=== PATIENT | male | born 1990 | race Caucasian/White ===

== ENCOUNTER 2021-03-01 08:29 | Emergency (ER) | payer MEDICAID, SELFPAY ==
[2021-03-01 08:36] VITALS: BP 131/74; PULSE 59; RESP 16; TEMP 36.4; O2SAT 99; BMI 25.4
--- NOTE | 2021-03-01 09:12 | ED.NECK ---
HPI - Neck Pain/Injury General Chief Complaint: Neck Pain/Injury Stated Complaint: fall Time Seen by Provider: 03/01/21 09:06 Source: patient and RN notes reviewed Mode of arrival: ambulatory Limitations: no limitations History of Present Illness HPI Narrative: Patient reports that he was and shower yesterday slipped and fell onto his right shoulder. [place] fine yesterday, however this morning states that he has some tightness in the scapular region. Denies any spine point tenderness. Has good range of motion to bilateral upper extremities. Able to move his neck without any difficulties. Reports right shoulder muscle spasm. Denies any mid or low back or spine pain. Related Data Previous Rx's Medication Instructions Recorded cyclobenzaprine 10 mg PO BID PRN #10 tab 03/01/21 ibuprofen 600 mg PO Q8H PRN #20 tab 03/01/21 Allergies Allergy/AdvReac Type Severity Reaction Status Date / Time No Known Allergies Allergy Unverified 07/11/20 18:27 [No Known Allergies*] Review of Systems Review of Systems: Constitutional : No Weight loss, No Fever, No Chills, No Night Sweats, No Fatigue, No Malaise ENT/Mouth : No Hearing loss, No Ear Pain, No Nasal Congestion, No Sinus Pain, No Hoarseness, No sore throat, No Rhinorrhea, No Swallowing Difficulty Eyes: No Eye Pain, No Swelling, No Redness, No Foreign Body, No Discharge, No Vision Changes Cardiovascular : No Chest Pain, No SOB, No Dyspnea on Exertion, No Orthopnea, No Edema, No Palpitations Respiratory : No Cough, No Sputum, No Wheezing, No Smoke Exposure, No Dyspnea Gastrointestinal : No Nausea, No Vomiting, No Diarrhea, No Constipation, No abdominal Pain, No Hematochezia, No Melena Genitourinary : no irregular bleeding, No Dysuria, No Urinary Frequency, No Hematuria, No Urinary Incontinence, No Urgency, No Flank Pain, No Urinary Flow Changes, No Hesitancy Musculoskeletal : No joint pain, No Myalgias, No Joint Swelling, right upper back pain Skin : No Skin Lesions, No rash Neuro : No Weakness, No Numbness, No Paresthesias, No Loss of Consciousness, No Dizziness, No Headache Psych : No Anxiety/Panic, No Depression, No SI/HI/AH/VH, No Social Issues, Heme/Lymph: No Bruising, No Bleeding,No Lymphadenopathy Endocrine : No Polyuria, No Polydipsia, No Temperature Intolerance Yes all other systems are reviewed and are negative PMFSH Past Medical History Medical History (Updated 03/01/21 @ 09:[address] [facility] No known health problems Social History Social History Advance Directives: No Advance Directives Information Provided: No Physical Exam Vital Signs: Vital Signs: Last Vital Signs Temp 97.6 F 03/01/21 08:36 Pulse 59 03/01/21 08:36 Resp 16 03/01/21 08:36 BP 131/74 03/01/21 08:36 Pulse Ox 99 03/01/21 08:36 Body Mass Index 25.4 Const: General: healthy appearing, no acute distress and well developed Nutritional Appearance: well nourished Orientation/consciousness: patient oriented x3 Neck: Neck: Yes normal visual inspection, Yes full ROM and Yes trachea midline Thyroid: Thyroid normal Resp: Auscultation: clear to auscultation bilaterally Cardio: Rate: regular rate Rhythm: regular rhythm GI: Inspection: Yes normal to inspection and No distended Palpation (GI): No hepatosplenomegaly present Auscultation: normal bowel sounds : General: Yes no CVA tenderness Back/Spine/Pelvis: Back: no CVA tenderness Cervical Spine: cervical ROM normal Thoracic/Lumbar Spine: thoracic and lumbar spine normal to inspection, paraspinal muscle tenderness (Right upper), No thoracic spinal tenderness and No lumbar spinal tenderness Skin: General skin exam: elasticity normal, turgor normal and dry skin Neuro: General: patient oriented x3 Course Course Course Narrative: 30-year-old male here today after sustaining a fall in the bathroom. States that he woke up this morning with right shoulder pain, denies any spinal tenderness. Right shoulder pain, good range of motion to bilateral upper extremities. Will send patient home with muscle relaxers and nonsteroidal anti-inflammatory medications. Patient is asking for work note for today Discharge Plan Discharge Clinical Impression: Strain of neck muscle Qualifiers: Encounter type: initial encounter Qualified Code(s): S16.1XXA - Strain of muscle, fascia and tendon at neck level, initial encounter Patient Disposition: Home, Self-Care Instructions: Musculoskeletal Pain (ED) Additional Instructions: Your seen in the emergency room after fall. Your strained year neck muscle. Please apply ice for the next 3 days for comfort. You were given ibuprofen in the emergency room. He will be sent home with cyclobenzaprine which is a muscle relaxer. Please do not drive or operate any heavy machinery while you take this medication. Please return to emergency department if you symptoms will get worse or if you will experience any additional concerning symptoms. Prescriptions: New ibuprofen 600 mg tablet 600 mg PO Q8H PRN (Reason: pain) Qty: 20 RF: 0 cyclobenzaprine 10 mg tablet 10 mg PO BID PRN (Reason: muscle spasm) Qty: 10 RF: 0 Stand Alone Forms: Work/School Release Interventions: ED Discharge Assessment Last Done: 03/01/21 09:33 Discharge Date/Time: 03/01/21 09:30
[2021-03-01] MEDS: Ibuprofen 600 MG TABLET PO (09:22)
== END 2021-03-01 09:30 | disposition home or self-care (01) ==
PROVIDERS: Emergency Provider Emergency Medicine; PCP Internal Medicine Geriatric Medicine
DX: S16.1XXA Strain of muscle, fascia and tendon at neck level, initial encounter (principal); W18.2XXA Fall in (into) shower or empty bathtub, initial encounter; Y93.E1 Activity, personal bathing and showering; Y92.012 Bathroom of single-family (private) house as the place of occurrence of the external cause; Y99.9 Unspecified external cause status
CPT/HCPCS: 99283

== ENCOUNTER 2021-03-19 12:36 | Emergency (ER) | payer MEDICAID, SELFPAY ==
--- NOTE | ~2021-03-19 | XR_ITS ---
EXAMINATION: XR KNEE, RIGHT CLINICAL INFORMATION: Fall, trauma, pain COMPARISON: None TECHNIQUE: The right knee is imaged in 4 views including are stable lateral projection. FINDINGS: The crosstable lateral view shows small suprapatellar effusion with fat fluid level suggesting occult intracapsular fracture. One of the oblique views may suggest a fine cortical avulsion adjacent to posterior medial tibial plateau measuring 5 x 3 mm. Otherwise, there is no definite fracture line and no articular surface depression. There is no joint narrowing or erosive change. The bony mineralization is normal. Hoffa's fat pad appears normal. XR/XR knee RT 4V IMPRESSION: Small fat-fluid level suprapatellar bursa suggesting occult intracapsular fracture. There may be a cortical avulsion on one of the oblique views near the posterior medial tibial plateau measuring 5 x [address] knee for further assessment.
--- NOTE | ~2021-03-19 | CT_ITS ---
EXAMINATION: CT KNEE WITHOUT CONTRAST, RIGHT CLINICAL INFORMATION: Evaluate plateau fracture. COMPARISON: None TECHNIQUE: Axial 2 mm thin and reformatted 1 mm thin sagittal and coronal images of right knee were obtained. This CT examination was performed using dose optimization techniques as appropriate, variously including the following: *Automated exposure control *Adjustment of mA and/or kV according to patient size (this includes techniques or standardized protocols for targeted exams where dose is matched to indication/reason for exam; i.e. extremities or head) *Use of iterative reconstruction technique DLP: 187 mGy-cm FINDINGS: There are small avulsion fractures along the posterior margins of lateral and medial plateau with associated mild soft tissue swelling. There is mild suprapatellar joint effusion seen as well. No additional fracture, dislocation or loose body seen. No additional bony abnormality or fracture seen. CT/CT knee RT wo con IMPRESSION: Small avulsion fractures posterior margin of the medial and lateral tibial plateau with mild soft tissue swelling and mild suprapatellar joint effusion.
[2021-03-19 13:10] VITALS: BP 123/78; PULSE 72; RESP 18; TEMP 36.5; O2SAT 100; BMI 25.7
[2021-03-19] MEDS: Diphth,Pertus(ACell),Tet Adult 0.5 ML SYRINGE IM (13:21)
--- NOTE | 2021-03-19 14:07 | ED.LOWEXIN ---
HPI - Extremity Injury (Lower) General Chief Complaint: Extremity Injury, Lower <BELKYS Fields Last Filed: 03/28/21 12:15> Stated Complaint: knee injury <BELYKS Fields Last Filed: 03/28/21 12:15> Time Seen by Provider: 03/19/21 13:08 <BELKYS Fields Last Filed: 03/28/21 12:15> History of Present Illness HPI Narrative: Patient complains of right knee pain after a fall off a scooter, no other injury no headache no head injury no neck injury no neck pain no back pain no numbness weakness or tingling <BELKYS Fields Last Filed: 03/28/21 12:15> Related Data Home Medications: Previous Rx's Medication Instructions Recorded cyclobenzaprine 10 mg PO BID PRN #10 tab 03/01/21 ibuprofen 600 mg PO Q8H PRN #20 tab 03/01/21 acetaminophen 1,000 mg PO Q6H PRN #30 tab 03/19/21 cephalexin 500 mg PO TID 3 Days #9 tab 03/19/21 ibuprofen 600 mg PO Q6H PRN #30 tab 03/19/21 oxycodone 5 mg PO Q6H PRN #20 tab 03/19/21 <BELKYS Fields Last Filed: 03/28/21 12:15> Allergies/Adverse Reactions: Allergies Allergy/AdvReac Type Severity Reaction Status Date / Time No Known Allergies Allergy Verified 04/09/21 14:51 [No Known Allergies*] <BELKYS Fields Last Filed: 03/28/21 12:15> Review of Systems Review of Systems: Positive for right knee pain Negatives are no fever no chills no dizziness no weakness no headache no fainting no feeling faint and no dizziness no neck pain no back pain no chest pain no abdominal pain no numbness weakness or tingling <BELKYS Fields Last Filed: 03/28/21 12:15> Yes all other systems are reviewed and are negative <BELKYS Fields Last Filed: 03/28/21 12:15> PMFSH Past Medical History Source: nursing notes reviewed <BELKYS Fields Last Filed: 03/28/21 12:15> Medical History: Medical History No known health problems <BELKYS Fields - Last Filed: 03/28/21 12:15> Social History Social History: Social History (Updated 04/09/21 @ 14:55 by JOSEFA Mcallister) Alcohol intake: never Patient Tobacco Use Status: Never used Tobacco Current occupational status: unemployed Current occupation: rt handed <BELKYS Fields - Last Filed: 03/28/21 12:15> Physical Exam Vital Signs: Vital Signs: Last Vital Signs Temp 97.9 F 03/19/21 15:21 Pulse 66 03/19/21 15:21 Resp 16 03/19/21 15:21 BP 131/85 03/19/21 15:21 Pulse Ox 100 03/19/21 15:21 Body Mass Index 25.7 <BELKYS Fields - Last Filed: 03/28/21 12:15> Vital Signs: Last Vital Signs Temp 97.9 F 03/19/21 15:21 Pulse 66 03/19/21 15:21 Resp 16 03/19/21 15:21 BP 131/85 03/19/21 15:21 Pulse Ox 100 03/19/21 15:21 Body Mass Index 25.7 <Zach Holden MD - Last Filed: 04/29/21 18:23> General appearance is no acute distress Head is normocephalic atraumatic Neck is supple nontender Chest clear to auscultation bilateral with no chest wall tenderness Artery murmur Abdomen is soft nontender Extremities the right knee has tenderness mild swelling and some superficial abrasions, no obvious effusion, patient has difficulty with straight leg raise but is able to do it, he cannot bend the knee and he cannot bear weight on it, it is neurovascular intact distal Other extremities normal Neuro no gross motor or sensory deficit <BELKYS Fields - Last Filed: 03/28/21 12:15> Course Course Course Narrative: Patient's pain was controlled with analgesics, he was able to use crutches X-ray and CT scan showed avulsion fractures of lateral and medial plateau This was discussed by text with orthopedic physician assistant men's lacrosse coach pete and plan is knee immobilizer crutches and follow in the office, patient will call to make the appointment <BELKYS Fields - Last Filed: 03/28/21 12:15> I have reviewed the chart <Zach Holden MD - Last Filed: 04/29/21 18:23> Discharge Plan Discharge Clinical Impression: Closed fracture of tibial plateau <BELKYS Fields Last Filed: 03/28/21 12:15> Patient Disposition: Home, Self-Care <BELKYS Fields Last Filed: 03/28/21 12:15> Additional Instructions: You should be seen by orthopedist either late this week or early next week for broken bone in the knee This was discussed with physician assistant men's lacrosse coach Ashely Freeman, so if medical records secretary says there is no appointment available make sure that you mention this was discussed with the physician assistant men's lacrosse coach and you should be seen end of this week or early next week Return to ER any time any concerns You got a tetanus shot We are giving 3 days of Keflex antibiotic to prevent infection <BELKYS Fields Last Filed: 03/28/21 12:15> Prescriptions: New oxycodone 5 mg tablet 5 mg PO Q6H PRN (Reason: pain) Qty: 20 RF: 0 acetaminophen 500 mg tablet 1,000 mg PO Q6H PRN (Reason: pain) Qty: 30 RF: 0 ibuprofen 600 mg tablet 600 mg PO Q6H PRN (Reason: pain) Qty: 30 RF: 0 cephalexin 500 mg tablet 500 mg PO TID 3 Days Qty: 9 RF: 0 No Action ibuprofen 600 mg tablet 600 mg PO Q8H PRN (Reason: pain) Qty: 20 RF: 0 cyclobenzaprine 10 mg tablet 10 mg PO BID PRN (Reason: muscle spasm) Qty: 10 RF: 0 <BELKYS Fields - Last Filed: 03/28/21 12:15> Referrals: Tatiana Delcid MD [Physician] - 2 days (Tibial plateau avulsion fractures, discussed with physician assistant freeman) <BELKYS Fields Last Filed: 03/28/21 12:15> Stand Alone Forms: Work/School Release <BELKYS Fields Last Filed: 03/28/21 12:15> Interventions: ED Discharge Assessment Last Done: 03/19/21 16:13 <BELKYS Fields Last Filed: 03/28/21 12:15> Discharge Date/Time: 03/19/21 16:16 <BELKYS Fields - Last Filed: 03/28/21 12:15>
[2021-03-19] MEDS: Ketorolac Tromethamine 30 MG/ML VIAL IM (14:11)
[2021-03-19] MEDS: oxyCODONE HCl Immed Release 5 MG TABLET 10 MG PO (14:12)
--- NOTE | 2021-03-19 14:15 | PC.NURSE ---
PT STATES RIGHT KNEE PAIN IS INCREASING AND FEELS DIZZY FROM THE PAIN. PT MOVED TO A STRETCHER FROM A RECLINER CHAIR AND MEDICATED FOR PAIN. AWAITING CT.
[2021-03-19 14:51] VITALS: RESP 17
[2021-03-19 15:21] VITALS: BP 131/85; PULSE 66; RESP 16; TEMP 36.6; O2SAT 100
[2021-03-19] MEDS: cephALEXin 500 MG CAPSULE PO (16:09)
== END 2021-03-19 16:16 | disposition home or self-care (01) ==
PROVIDERS: Emergency Provider Emergency Medicine; PCP Internal Medicine Geriatric Medicine
DX: S82.141A Displaced bicondylar fracture of right tibia, initial encounter for closed fracture (principal); M25.561 Pain in right knee; W19.XXXA Unspecified fall, initial encounter; Y93.9 Activity, unspecified; Y92.9 Unspecified place or not applicable; Y99.8 Other external cause status
CPT/HCPCS: 73564; 73700; 90471; 90715; 96372; 99284; J1885

== ENCOUNTER → 2021-03-28 08:05 | Outpatient (BNVA) | payer MEDICAID, SELFPAY | PROVIDERS: PCP Internal Medicine Geriatric Medicine; Visit Provider Physician Assistant | DX: S82.141A Displaced bicondylar fracture of right tibia, initial encounter for closed fracture (principal) | CPT/HCPCS: 99202 ==

== ENCOUNTER 2021-04-03 19:31 | Outpatient (REF) | payer MEDICAID, SELFPAY ==
--- NOTE | ~2021-04-03 | MR_ITS ---
EXAMINATION: MR KNEE WITHOUT CONTRAST, RIGHT CLINICAL INFORMATION: Displaced bicondylar fracture of right tibia. Patient reports right posterior knee pain, swelling with symptoms for 2 weeks after injury. COMPARISON: XR and CT right knee 03/19/2021. TECHNIQUE: MRI of the knee without contrast was performed using routine sequences on a high-field scanner. FINDINGS: MENISCI: Medial Meniscus: Intact Lateral Meniscus: There is a bucket-handle tear of the lateral meniscus. The entire posterior horn and much of the body are displaced centrally and anteriorly. LIGAMENTS: Cruciate: There is a complete tear of the proximal to midportion of the anterior cruciate ligament. The posterior cruciate ligament is intact. Collateral: There is some irregularity and mild signal abnormality of the superficial layer of the medial collateral ligament diffusely, consistent with a mild sprain. There are similar findings involving the deep layer, even more so in the proximal meniscofemoral ligament region. Overall [id number] grade sprain. There is moderate grade partial tearing of the proximal fibular collateral ligament with more low-grade partial tearing of the mid to distal ligament. There is some loculated fluid between the fibular collateral ligament and biceps femoris tendon extending deep and posterior to the tendon. There is streaky edema in the popliteus muscle consistent with a mild strain. There is mild tendinosis of the distal popliteus tendon. There are mild strains of the proximal lateral head gastrocnemius and soleus muscles. EXTENSOR MECHANISM: Intact. ARTICULAR CARTILAGE/BONE: Patellofemoral Compartment: There is focal cartilage surface irregularity and thinning at the junction of the apex and lateral facet of the patella. There is mild cartilage surface irregularity in the superior aspect of the central femoral trochlea. Medial Compartment: There is a comminuted intra-articular fracture of the posterior margin of the medial tibial plateau. There is some displacement of small fracture fragments, better characterized on the prior CT scan. There is a small focal area of cortical irregularity, including some full-thickness fissuring. There is diffuse bone marrow edema, most prominent posteriorly but also present anteriorly and extending to the metaphysis. There is mild bone marrow edema in the medial aspect of the medial femoral condyle. Lateral Compartment: There is a comminuted fracture of the posterior margin of the lateral tibial plateau with mild posterior displacement of cortical fragments, somewhat better visualized on the prior CT scan. There is focal overlying full-thickness cartilage fissuring. There is diffuse underlying bone marrow edema, most prominent posteriorly but also involving the anterior aspect of the lateral tibial plateau and extending to the metaphysis. There is focal mild bone marrow edema in the sulcus terminalis region of the lateral femoral condyle. JOINT FLUID AND BURSAE: Large joint effusion. MR/MR knee RT wo con IMPRESSION: 1. Complex bucket-handle tear of the lateral meniscus. 2. Complete tear of the anterior cruciate ligament. 3. Tbqg-at-trokzoor grade sprain of the medial collateral ligament. 4. Mild popliteus tendinosis and strain. Mild strains of the proximal lateral head gastrocnemius and soleus muscles. 5. Focal comminuted intra-articular fractures at the posterior margins of the medial and lateral tibial plateaus with overlying cartilage fissures and underlying diffuse bone marrow edema. Mild bone contusion in the sulcus terminalis region of the lateral femoral condyle. Minor bone contusion in the medial aspect of the medial femoral condyle. 6. Mild central patellofemoral arthrosis. 7. Large joint effusion.
== END 2021-04-03 19:32 | disposition home or self-care (01) ==
LOC: HO.MRI 19:31
PROVIDERS: Visit Provider Physician Assistant
DX: S82.141A Displaced bicondylar fracture of right tibia, initial encounter for closed fracture (principal)
CPT/HCPCS: 73721

== ENCOUNTER → 2021-04-09 14:41 | Outpatient (BNVA) | payer MEDICAID, SELFPAY | PROVIDERS: PCP Internal Medicine Geriatric Medicine; Visit Provider Physician Assistant | DX: S83.511D Sprain of anterior cruciate ligament of right knee, subsequent encounter (principal) | CPT/HCPCS: 99212 ==

== ENCOUNTER → 2021-05-20 11:36 | Outpatient (BNVA) | payer MEDICAID, SELFPAY | PROVIDERS: Visit Provider Physician Assistant | DX: Z01.818 Encounter for other preprocedural examination (principal); S83.511A Sprain of anterior cruciate ligament of right knee, initial encounter | CPT/HCPCS: 99212 ==

== ENCOUNTER → 2021-05-27 14:14 | Outpatient (BNVA) | payer MEDICAID, SELFPAY | PROVIDERS: PCP Internal Medicine Geriatric Medicine; Visit Provider Physician Assistant | DX: S83.511D Sprain of anterior cruciate ligament of right knee, subsequent encounter (principal) | CPT/HCPCS: 99212 ==

== ENCOUNTER 2021-05-29 06:02 | Day surgery (SDC) | payer MEDICAID, SELFPAY ==
[2021-05-15 11:46] VITALS: BMI 25.4
--- NOTE | 2021-05-28 08:13 | HO.ANESPROP2 ---
Documented by User: Gillian Wayne 05/28/21 08:14 HPI - Anesthesia Eval Consult details Narrative: 31yo M for Right ACL Allograft econstruction PMFSH Active Problems Active Problems: All Active Problems (Updated 05/15/21 @ 11:44 by Iqra Harrison) Tibial plateau fracture, right (Acute) Right ACL tear (Acute) Past Medical History Medical History Low back pain Surgical History Surgical History No history of previous surgery Social History Social History Alcohol intake: never Patient Tobacco Use Status: Never used Tobacco Use of substances other than those prescribed or required for medical reasons: No Are you DNR?: No Advance Directives: No Advance Directives Information Provided: No Advance Directives on File: No Current occupational status: unemployed Current occupation: rt handed Meds Allergies Allergy/AdvReac Type Severity Reaction Status Date / Time No Known Allergies Allergy Verified 05/29/21 06:09 [No Known Allergies*] Home Medications Medication Instructions Recorded Confirmed Last Taken Type acetaminophen 500 mg tablet 650 mg PO Q6H PRN 05/15/21 05/15/21 Unknown History ibuprofen 600 mg tablet 600 mg PO BID PRN 05/15/21 05/15/21 Unknown History Exam Exam Date and Time: May 28, 2021 0813 Height,Weight and Vital Signs: Height 5 ft 4 in Weight 67.132 kg Assessment and Plan Assessment Anesthesia Assessment: Chart Reviewed Documented by User: Chang Oneil MD 05/29/21 07:44 PMFSH Past Medical History Medical History Low back pain Family History Family history of problems with anesthesia: No Surgical History Surgical History No history of previous surgery History of Problems with Anesthesia: No Social History Social History Alcohol intake: never Patient Tobacco Use Status: Never used Tobacco Use of substances other than those prescribed or required for medical reasons: No Are you DNR?: No Advance Directives: No Advance Directives Information Provided: No Advance Directives on File: No Current occupational status: unemployed Current occupation: rt handed Meds Allergies Allergy/AdvReac Type Severity Reaction Status Date / Time No Known Allergies Allergy Verified 05/29/21 06:09 [No Known Allergies*] Home Medications Medication Instructions Recorded Confirmed Last Taken Type acetaminophen 500 mg tablet 650 mg PO Q6H PRN 05/15/21 05/15/21 Unknown History ibuprofen 600 mg tablet 600 mg PO BID PRN 05/15/21 05/15/21 Unknown History Exam Airway Mallampati Class: II TM Dist: >3cm Neck ROM: Full Loose/Missing/Broken Teeth: No Heart: RRR Assessment and Plan Assessment Anesthesia Assessment: Anesthesia Plan Discussed and Chart Reviewed Final Anesthetic Review Family History of Problems with Anesthesia: No History of Problems with Anesthesia: No NPO: Yes ASA Class: I Final Preanesthetic Review: No Changes in Pt Med Stat, Meds/Allgs Chart Reviewed, Consent Obtained/Reviewed and Anes Risks/Benef Reviewed Patient Risk: Low Procedure Risk: Low Anesthetic Plan Anesthetic Plan: GA Disposition: Standard PACU
[2021-05-29] VITALS (13 sets, daily range): BP systolic 121–145; BP diastolic 65–93; PULSE 45–80; RESP 6–16; TEMP 36.1–36.6; O2SAT 94–99
[2021-05-29] MEDS: Lactated Ringers 1,000 ML 100 ML IVCONT (06:48)
--- NOTE | 2021-05-29 07:29 | MHC.SHP ---
Pre-Procedural Eval Section A Date of Service: 05/29/21 The patient is an INPATIENT: No Changes since office visit: No Cold of Flu in the past 2 weeks, No New Medical Problems, No Changes in Medication and No Patient answered all questions The History & Physical has been completed within 30 days and I have reviewed it.: Yes Section B Chief Complaint: fx right tibia Allergies: Allergies Allergy/AdvReac Type Severity Reaction Status Date / Time No Known Allergies Allergy Verified 05/29/21 06:09 [No Known Allergies*] Plan I have reviewed the history and physical and performed a pertinent physical examination on my patient. No changes have occurred unless specified.
[2021-05-29] MEDS: HYDROmorphone HCl 0.5 MG/0.5 ML SYRINGE 0.25 MG IVPUSH ×3 (09:24→09:54)
[2021-05-29] MEDS: Ketorolac Tromethamine 15 MG/ML VIAL IVPUSH (09:28)
[2021-05-29] MEDS: Acetaminophen 325 MG TABLET 975 MG PO (09:35)
--- NOTE | 2021-05-29 10:08 | W.PM.OPN ---
Operative Note Operative Note Date of Service: 05/29/21 Narrative: OPERATIVE NOTE-ACL RECONSTRUCTION SURGEON: Dr Tatiana Walden) Instrum AUTOMATIC PUNCH PRESS OPERATOR: , Aliyah Henning PAC PREOP DIAGNOSIS: ACL deficient right knee POSTOP DIAGNOSIS: Same with lateral meniscus tear OPERATIVE PROCEDURE: ACL reconstruction right knee with BTB allograft. Partial lateral meniscectomy right knee CLINICAL NOTE: This young man suffered an injury where he suffered an ACL injury. After explaining the risks, benefits, and alternatives of the surgery and answering all his questions it was mutually agreed upon to carry out the following procedure MOTION: Full range of motion STABILITY: Positive Chance's and pivot shift. Collateral ligaments intact OPERATIVE DETAILS PREPARATION: GA, STANDARD TECHNIQUE, tourniquet to 300 mm of mercury for 49 minutes SURGICAL TIME-OUT: Patient is identified. Procedure confirmed. Site confirmed. Medical and allergy history is reviewed. Preoperative antibiotics were given. Standard DVT prophylaxis in place. All other items discussed and agreed upon. INCISIONS: Superolateral, inferolateral, inferomedial stab incisions. Proximal medial metaphyseal incision for tibial tunnel and graft insertion SYNOVIUM: Clear SYNOVIAL fluid: Clear MEDIAL COMPARTMENT: The medial meniscus, tibial and femoral articular surfaces, were all stable and intact LATERAL COMPARTMENT: There was a bucket-handle tear that was detached from the posterior root that had translated anteriorly. This was resected final fibers at the posterior root and then resected to the anterior portion. There was stable but minimal meniscus remaining posteriorly. The tibial and femoral articular surfaces and the popliteus tendon were all stable and intact. ANTERIOR COMPARTMENT: Medial and lateral gutters clear. Suprapatellar pouch clear. The patella had some grade 3 injury which was debrided. The femoral sulcus was intact INTERCONDYLAR NOTCH: . The ACL was obviously torn and scarred back to the PCL. Using a combination of the arthro Wand and the Ultra cut resector, the ACL was removed. The periosteum was cleared as well as the soft tissues from the intercondylar notch region. The PCL was identified. Using the Arthrex guide the tibial tunnel was established through a stab incision on the proximal medial metaphyseal region in standard technique by drilling the wire and subsequently over reaming it with a 10 mm headed Reamer. A rasp was then used to smooth the canal. Simultaneous to the tibial tunnel being prepared, the allograft was prepared as well. It was a bone patellar bone allograft that measured 107 mm. One bone block was 30 mm. The opposite 1 was 28 mm. Maxon sutures were placed through drill holes on the longer end and Tycron sutures through drill holes on the tibial side. The graft was then protected return her attention back to the knee. Using the [id number] guide standard technique with the position being approximately 10:00 o'clock the Beath needle was drilled out of the anterolateral cortex. Following this the 10 mm headed Reamer was used over the guidewire. Footprint was made. It was checked and there was good posterior wall. It was then drilled out to a 35 mm depth. The notch was used in standard fashion. The bony fragments were washed from the wound. The graft was then brought up to the table. The Maxon sutures were placed through the eye of the Beath needle. The graft was then translated through the tibial tunnel across the PCL into the femoral canal without incident. Using the inferomedial portal the nidol guidewire was inserted into the notch and with the knee flexed up an 8 x 25 mm BioScrew was inserted with excellent purchase. With the graft at tension the knee was repetitively flexed and extended. The graft was then secured with the leg at 15 degrees of flexion and the graft to tension with a another 8 x 25 mm BioScrew inserted into the tibial tunnel. Following this final images were taken. The knee demonstrated negative Chance's and pivot shift and therefore proceeded closure. Incisions approximated using interrupted 3-0 Polysorb. Dermabond Steri-Strips and sterile dressing were then applied. The knee was placed in a brace locked straight. The patient's anesthesia was reversed. They were transferred to the recovery room in good condition. Intraoperatively there was minimal blood loss. There was no complications
== END 2021-05-29 11:45 | disposition home or self-care (01) ==
PROVIDERS: PCP Internal Medicine Geriatric Medicine; Visit Provider Orthopaedic Surgery
PROC: (CPT 27428; principal; 2021-05-29 07:30)
DX: S83.511A Sprain of anterior cruciate ligament of right knee, initial encounter (principal); S83.251A Bucket-handle tear of lateral meniscus, current injury, right knee, initial encounter; S83.411A Sprain of medial collateral ligament of right knee, initial encounter; X58.XXXA Exposure to other specified factors, initial encounter; Y93.9 Activity, unspecified; Y92.9 Unspecified place or not applicable; Y99.8 Other external cause status
CPT/HCPCS: 29888; 29881; C1713; C1763; C1769; J0171; J0690; J1100; J1170; J1885; J2250; J2405; J3010

== ENCOUNTER → 2021-06-05 10:41 | Outpatient (BNVA) | payer MEDICAID, SELFPAY | PROVIDERS: PCP Internal Medicine Geriatric Medicine; Visit Provider Physician Assistant | DX: S83.511D Sprain of anterior cruciate ligament of right knee, subsequent encounter (principal) | CPT/HCPCS: 99212 ==

== ENCOUNTER → 2021-06-10 10:54 | Outpatient (BNVA) | payer MEDICAID, SELFPAY | PROVIDERS: PCP Internal Medicine Geriatric Medicine; Visit Provider Physician Assistant | DX: Z47.89 Encounter for other orthopedic aftercare (principal) | CPT/HCPCS: 99212 ==

== ENCOUNTER → 2021-07-08 10:46 | Outpatient (BNVA) | payer MEDICAID, SELFPAY | PROVIDERS: PCP Internal Medicine Geriatric Medicine; Visit Provider Physician Assistant | DX: Z98.890 Other specified postprocedural states (principal) | CPT/HCPCS: 99212 ==

== ENCOUNTER 2021-08-01 15:16 | Outpatient (REF) | payer MEDICAID, SELFPAY ==
--- NOTE | ~2021-08-01 | XR_ITS ---
EXAMINATION: XR LUMBOSACRAL SPINE CLINICAL INFORMATION: Pain and clicking COMPARISON: Previous x-ray May 2019 TECHNIQUE: Three views of the lumbosacral spine. FINDINGS: The vertebral bodies and posterior elements are normal. The disc spaces are preserved and the vertebral alignment is normal. The paraspinal soft tissues are normal. XR/XR lumbar spine 2-3V IMPRESSION: Unremarkable examination.
== END 2021-08-01 15:17 | disposition home or self-care (01) ==
LOC: HO.XRAY 15:16
PROVIDERS: Absent Provider Internal Medicine Geriatric Medicine; PCP Internal Medicine Geriatric Medicine; Visit Provider Nurse Practitioner Primary Care
DX: M53.3 Sacrococcygeal disorders, not elsewhere classified (principal)
CPT/HCPCS: 72100

== ENCOUNTER → 2021-08-11 08:42 | Outpatient (BNVA) | payer MEDICAID, SELFPAY | PROVIDERS: Visit Provider Physician Assistant | DX: Z98.890 Other specified postprocedural states (principal) | CPT/HCPCS: 99212 ==

== ENCOUNTER 2021-09-11 10:00 | Outpatient (RCR) | payer MEDICAID, SELFPAY ==
--- NOTE | 2021-07-03 15:42 | MHC.PT.EP ---
[facility] [place] Office [place] Office [place] Office [address] Celestine Vaughan [address] [phone] F: [phone] F: [phone] F: [phone] F: [phone] Physical Therapy Plan of Care Date of Evaluation: Date of Surgery: 05/29/21 Diagnosis: S/P RIGHT ACL W BTB ALLOGRAFT AND PARTIAL LATERAL MENISCECTOMY 05/29/21 next ortho f/u 07/09/21 Assessment: 31 YO MALE REF TO PT S/P Rt ACL REPAIR ALLOGRAFT W BTB AND PARTIAL LATERAL MENISCECTOMY 05/29/21- HE IS CURRENTLY 5 WKS P/O AND IS COMPLIANT W BRACE USE, HE D/C CRUTCHES THIS DATE. 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 OBJECTIVE FINDINGS MIRROR THAT OF POST-OP: DECR ROM Rt KNEE, DECR Rt PATELLAR MOB, DECR STRENGTH Rt LE, MILD EDEMA, AND SOME RESIDUAL PAIN IN Rt KNEE. FUNCTIONAL LIMITATIONS INCLUDE ADL RESTRICTIONS, IN Rt KNEE BRACE, DIFFIC W STAIR MGMT, AND GEN DECR TO INCR WALKING. Pt IS MOTIVATED FOR PT AND MEETING HIS POST OP GOALS OF RTW/ REG ADLs. Frequency and Duration: The patient will be seen 2x WK x 6 WKS Short Term Goals: DECR PAIN AND EDEMA Rt KNEE IN 2 WKS IMPROVE/ WFL Rt KNEE ROM IN 3 WKS WFL Rt PATELLAR MOB IN 3 WKS Skilled Nursing Goals: Pt DEMON INDEP GAIT LEVEL AND UNEVEN SURFACES AND RESUME ADLs PER PROTOCOL IN 6 -8 WKS RESTORE PROPRIOCEPTION/ NEUROMUSCULAR CONTROL W HIGHER LEVEL ADLs IN 6 WKS Pt INDEP W HEP AND STRENGTH PROGR IN 8 WKS Treatment Plan: Modalities to reduce pain, spasms and effusion. Manual therapy to restore motion and function. Therapeutic exercise to improve strength and flexibility. Neuromuscular re-education for posture and balance. Therapeutic activities to return to functional activities of daily living. Electronically signed by: AMERICA CASTRO,PT Please sign and return to therapist. Thank you for your referral.
--- NOTE | 2021-10-20 14:04 | MHC.PT.DC ---
[facility] [place] Office [place] Office [place] Office [address] Celestine Vaughan [address] [phone] F: [phone] F: [phone] F: [phone] F: [phone] Physical Therapy Discharge Report Diagnosis: S/P RIGHT ACL W BTB ALLOGRAFT AND PARTIAL LATERAL MENISCECTOMY 05/29/21 next ortho f/u 07/09/21 Date of Surgery: 05/29/21 Date of Evaluation: 07/03/21 Date of Discharge: 10/20/21 Treatments to Date: 16 Cancellations to Date: 3 No Shows to Date: 5 Discharge Status: Achieved Goals Improved Function Independent with HEP Patient Elected to Stop Discharge Summary: Pt HAS PROGRESSED IN PT S/P Rt ACL REPAIR 05/29/21- Pt HAS WFL AROM AND IMPROVED STRENGTH IN TRUNK AND Rt LE- Pt HAD DECREASED ATTENDANCE FOR SCHED PT APPTS, DESPITE OUR PHONE CALLS. Pt [facility]ERN[facility] W[employer]- HE HAD VERY POOR ATTENDANCE RECENTLY AND DID NOT INITIATE THE JUMP PROGRAM. Electronically signed by: Lillie Lindsay,PT Please sign and return to therapist. Thank you for your referral.
== END 2021-10-20 14:05 | disposition home or self-care (01) ==
LOC: HO.PT 10:00
PROVIDERS: PCP Internal Medicine Geriatric Medicine; Visit Provider Physician Assistant
DX: S83.511D Sprain of anterior cruciate ligament of right knee, subsequent encounter (principal); Z98.890 Other specified postprocedural states
CPT/HCPCS: 97110; 97112; 97162; 97530

== ENCOUNTER → 2021-09-26 12:59 | Outpatient (BNVA) | payer MEDICAID, SELFPAY | PROVIDERS: Visit Provider Physician Assistant | DX: Z98.890 Other specified postprocedural states (principal) | CPT/HCPCS: 99212 ==

== ENCOUNTER 2021-10-06 16:41 | Outpatient (REF) | payer MEDICAID, SELFPAY ==
--- NOTE | ~2021-10-06 | XR_ITS ---
EXAMINATION: XR KNEE, RIGHT CLINICAL INFORMATION: Sprain of medial collateral ligament of right knee, initial encounter. COMPARISON: MR right knee 04/03/2021. CT right knee 03/19/2021. TECHNIQUE: AP weightbearing, tunnel, lateral weightbearing, and sunrise views of the right knee are obtained. FINDINGS: There is no acute fracture or malalignment. There is a small joint effusion. There are postoperative changes from anterior cruciate ligament reconstruction. There is irregularity at the posterior margin of the lateral tibial plateau which may be the residua of the previously noted fractures of the posterior margins of the medial and lateral tibial plateaus. XR/XR knee RT 4V IMPRESSION: No acute fracture. Small joint effusion. Postoperative and posttraumatic changes as described above.
== END 2021-10-06 16:42 | disposition home or self-care (01) ==
LOC: HO.XRAY 16:41
PROVIDERS: Visit Provider Internal Medicine
DX: S83.411D Sprain of medial collateral ligament of right knee, subsequent encounter (principal); V89.2XXD Person injured in unspecified motor-vehicle accident, traffic, subsequent encounter
CPT/HCPCS: 73564

== ENCOUNTER 2022-04-17 16:15 | Outpatient (REF) | payer MEDICAID, SELFPAY ==
--- NOTE | ~2022-04-17 | XR_ITS ---
EXAMINATION: XR LUMBOSACRAL SPINE CLINICAL INFORMATION: Low back pain COMPARISON: 08/01/2021 TECHNIQUE: AP and lateral views of the lumbar spine with an additional coned down lateral spot view of the lumbosacral junction. FINDINGS: 5 non-rib bearing lumbar type vertebral bodies are seen. Vertebral body and disc heights are maintained. On the lateral view there is lucency through the L5 lamina suggesting pars defects. There is a suggestion of mild sclerosis adjacent the sacroiliac joints as well. 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 No anterolisthesis however. New/increased sclerosis adjacent the sacroiliac joints could be seen with sacroiliitis.
== END 2022-04-17 16:16 | disposition home or self-care (01) ==
LOC: HO.XRAY 16:15
PROVIDERS: PCP Internal Medicine Geriatric Medicine; Visit Provider Emergency Medicine
DX: M54.50 Low back pain, unspecified (principal)
CPT/HCPCS: 72100

== ENCOUNTER 2022-10-31 14:49 | Emergency (ER) | payer MEDICAID, SELFPAY ==
--- NOTE | ~2022-10-31 | XR_ITS ---
EXAMINATION: XR HAND, RIGHT CLINICAL INFORMATION: Crush injury COMPARISON: None TECHNIQUE: PA, lateral, and oblique views of the right hand. FINDINGS: The bones and soft tissues are normal. No fracture. Alignment is anatomic. Joint spaces are maintained. No erosions or soft tissue calcifications. XR/XR hand RT 2V IMPRESSION: Unremarkable right hand.
[2022-10-31 14:52] VITALS: BP 124/54; PULSE 89; RESP 18; TEMP 36.7; O2SAT 99; BMI 26.6
--- NOTE | 2022-10-31 14:52 | ED.GENADULT ---
HPI - General Adult General Chief complaint: Extremity Injury, Upper <BELKYS Gomez - Last Filed: 10/31/22 14:54> Stated complaint: r hand laceration <BELKYS Gomez - Last Filed: 10/31/22 14:54> Time Seen by Provider: 10/31/22 15:22 <BELKYS Gomez - Last Filed: 10/31/22 14:54> Source: patient <Yessica Becerra NP - Last Filed: 10/31/22 18:34> Mode of arrival: ambulatory <Yessica Becerra NP - Last Filed: 10/31/22 18:34> Limitations: no limitations <Yessica Becerra NP - Last Filed: 10/31/22 18:34> History of Present Illness HPI narrative: 32-year-old male with no significant past medical history reports the emergency room after sustaining a partial degloving to the right index finger while working on an automobile. Patient states he is up-to-date on tetanus. He denies any numbness, tingling, weakness in the index finger or right hand. <Yessica Becerra NP - Last Filed: 10/31/22 18:34> Related Data Home medications: Home Medications Medication Instructions Recorded Confirmed acetaminophen 500 mg tablet 650 mg PO Q6H PRN pain 05/15/21 05/15/21 Previous Rx's Medication Instructions Recorded cephalexin 500 mg capsule 500 mg PO BID 10 days #20 caps 05/20/21 silver sulfadiazine 1 % topical 1 appl topical BID PRN wound 05/20/21 cream (Silvadene) healing #20 grams oxycodone 10 mg tablet 5 mg PO Q12H PRN pain #14 tabs 07/28/21 ibuprofen 600 mg tablet 600 mg PO BID PRN pain 30 days #60 08/11/21 tabs amoxicillin 875 mg-potassium 1 tab PO BID 5 days #10 tabs 10/31/22 clavulanate 125 mg tablet oxycodone 5 mg capsule 5 mg PO Q6H PRN pain #10 caps 10/31/22 <BELKYS Gomez - Last Filed: 10/31/22 14:54> Allergies/adverse reactions: Allergies Allergy/AdvReac Type Severity Reaction Status Date / Time No Known Allergies Allergy Verified 08/11/21 08:52 [No Known Allergies*] <BELKYS Gomez - Last Filed: 10/31/22 14:54> [facility] Past Medical History Medical History: Medical History Low back pain <BELKYS Gomez - Last Filed: 10/31/22 14:54> Surgical History: Surgical History No history of previous surgery <BELKYS Gomez - Last Filed: 10/31/22 14:54> Social History Social History: Social History Alcohol intake: never Patient Tobacco Use Status: Never used Tobacco Advance Directives: No Advance Directives Information Provided: Yes Current occupational status: unemployed Current occupation: rt handed <BELKYS Gomez - Last Filed: 10/31/22 14:54> Physical Exam ED Vital Signs: Vital Signs - 24 hr 10/31/22 14:52 10/31/22 15:41 10/31/22 16:34 Temperature 98.1 F 98.1 F Pulse Rate 89 58 Respiratory Rate 18 18 18 Blood Pressure 124/54 L 125/79 Pulse Oximetry 99 98 Oxygen Delivery Method Room Air Room Air BMI result Body Mass Index 26.6 <BELKYS Gomez - Last Filed: 10/31/22 14:54> Vital Signs - 24 hr 10/31/22 14:52 10/31/22 15:41 10/31/22 16:34 Temperature 98.1 F 98.1 F Pulse Rate 89 58 Respiratory Rate 18 18 18 Blood Pressure 124/54 L 125/79 Pulse Oximetry 99 98 Oxygen Delivery Method Room Air Room Air BMI result Body Mass Index 26.6 <Yessica Becerra NP - Last Filed: 10/31/22 18:34> Course Course Course Narrative: RME performed by Kaity Adhikari PA-C. Patient is a 32 year old male presenting to the emergency department with a right hand injury. Patient states that his hand was smashed by an engine. Patient has partial deglove injury to the right index finger - ROM + sensation intact. Patient up to date on tetanus. Charge nurse informed of acuity. <BELKYS Gomez - Last Filed: 10/31/22 14:54> RME performed by Kaity Adhikari PA-C. Patient is a 32 year old male presenting to the emergency department with a right hand injury. Patient states that his hand was smashed by an engine. Patient has partial deglove injury to the right index finger - ROM + sensation intact. Patient up to date on tetanus. Charge nurse informed of acuity. 1530: Dressing taken down and finger assessed. Initial read of rt hand xray with no fracture or dislocation. Spoke with Ortho BELKYS Lagos regarding injury. Plan to cleanse and suture close as much as possible, one dose IV antibiotics here in ED, discharge on PO antibiotics and follow up with orthopedics outpatient early next week. <Yessica Becerra NP - Last Filed: 10/31/22 18:34> Medications Administered Discontinued Medications Generic Name Dose Route Start Last Admin Trade Name Freq PRN Reason Stop Dose Admin Hydromorphone HCl 0.5 mg 10/31/22 15:34 10/31/22 15:41 Hydromorphone Hcl 0.5 Mg/0.5 Ml Syringe IVPUSH 10/31/22 15:35 0.5 mg ONCE ONE Administration Protocol Ceftriaxone Sodium 1 gm/ 50 mls @ 100 mls/hr 10/31/22 17:15 10/31/22 17:52 Sodium Chloride IV 10/31/22 17:44 Infused ONCE ONE Infusion Lidocaine HCl 30 ml 10/31/22 15:56 10/31/22 16:05 Lidocaine Hcl 1 % 20 Ml Vial INFILTRATI 10/31/22 15:57 30 ml ONCE ONE Administration <BELKYS Gomez - Last Filed: 10/31/22 14:54> Medications Administered Discontinued Medications Generic Name Dose Route Start Last Admin Trade Name Freq PRN Reason Stop Dose Admin Hydromorphone HCl 0.5 mg 10/31/22 15:34 10/31/22 15:41 Hydromorphone Hcl 0.5 Mg/0.5 Ml Syringe IVPUSH 10/31/22 15:35 0.5 mg ONCE ONE Administration Protocol Ceftriaxone Sodium 1 gm/ 50 mls @ 100 mls/hr 10/31/22 17:15 10/31/22 17:52 Sodium Chloride IV 10/31/22 17:44 Infused ONCE ONE Infusion Lidocaine HCl 30 ml 10/31/22 15:56 10/31/22 16:05 Lidocaine Hcl 1 % 20 Ml Vial INFILTRATI 10/31/22 15:57 30 ml ONCE ONE Administration <Yessica Becerra NP - Last Filed: 10/31/22 18:34> Procedures Laceration Laceration 1: Site: hand (index finger) <Yessica Becerra NP - Last Filed: 10/31/22 18:34> Side (If applicable): right <Yessica Becerra NP - Last Filed: 10/31/22 18:34> Description: linear <Yessica Becerra NP - Last Filed: 10/31/22 18:34> Depth: simple, single layer <Yessica Becerra NP - Last Filed: 10/31/22 18:34> Local Anesthetic: lidocaine 1% <Yessica Becerra NP - Last Filed: 10/31/22 18:34> Amount of anesthesia used (mL): 15 <Yessica Becerra NP - Last Filed: 10/31/22 18:34> Pre-repair: wound explored, irrigated extensively, deep structures intact and extensive debridement <Yessica Becerra NP - Last Filed: 10/31/22 18:34> Skin layer closed with: nylon <Yessica Becerra NP - Last Filed: 10/31/22 18:34> Size (cm): 4-0 <Yessica Becerra NP - Last Filed: 10/31/22 18:34> Number of sutures: 20 <Yessica Becerra NP - Last Filed: 10/31/22 18:34> Technique: simple, interrupted <Yessica Becerra NP - Last Filed: 10/31/22 18:34> Medical Decision Making Medical Decision Making MDM Narrative: 32-year-old male with no significant past medical history reports the emergency room after sustaining a partial degloving to the right index finger while working on an automobile. Patient states he is up-to-date on tetanus. Right hand x-ray negative for fracture or deformity. One dose Rocephin given in the emergency department with plan to continue p.o. antibiotics at home. Wound extensively cleansed and debrided. Anesthetized with 15 mL 1% lidocaine. Closed with 20 simple, interrupted sutures. Patient tolerated without incident. Augmentin sent to patient's preferred pharmacy for antibiotic coverage as well as oxycodone for control of pain. Plan for patient to follow-up with orthopedics at the beginning of next week. HPI, PE, diagnostic, no plan discussed with patient family with no unanswered questions at this time. Educated to return to the emergency department with new, worsening, or concerning emergent symptoms. Recommended follow-up with his primary care provider in addition to HM see orthopedics for further treatment and care. *Refer to Course for additional information on consultations, diagnostic interpretation, consultations, emergency department stay, conversations with patient and family, shared decision making with patient, and more information on medical decision making* <Yessica Becerra NP - Last Filed: 10/31/22 18:34> Discharge Plan Discharge Clinical Impression: Laceration of finger of right hand <BELKYS Gomez - Last Filed: 10/31/22 14:54> Patient Disposition: Home, Self-Care <BELKYS Gomez - Last Filed: 10/31/22 14:54> Instructions: Care For Your Stitches (ED), Finger Laceration (ED) <BELKYS Gomez - Last Filed: 10/31/22 14:54> Additional Instructions: An antibiotic prescription has been sent to your preferred pharmacy. Please take for prescription as prescribed. Narcotic pain medication has been sent to your pharmacy for control of pain related to your right finger laceration. Please take as prescribed. Do not drive or operate heavy machinery, take with alcohol, or use any other sedating medications. Please cleansed your finger with regular soap and water 1 to 2 times a day starting tomorrow. Please return to the emergency department for new, worsening, or concerning emergent symptoms. Please follow-up with your primary care provider and orthopedics for further treatment and management. <BELKYS Gomez - Last Filed: 10/31/22 14:54> Prescriptions: New amoxicillin-pot clavulanate 875-125 mg tablet 1 tab PO BID 5 Days Qty: 10 0RF oxycodone 5 mg capsule 5 mg PO Q6H PRN (Reason: pain) Qty: 10 0RF Rx Instructions: Partial Fill upon patient request. No Action oxycodone 10 mg tablet 5 mg PO Q12H PRN (Reason: pain) Qty: 14 0RF acetaminophen 500 mg tablet 650 mg PO Q6H PRN (Reason: pain) silver sulfadiazine [Silvadene] 1 % cream 1 appl topical BID PRN (Reason: wound healing) Qty: 20 0RF Rx Instructions: apply a 1.5 mm thickness cephalexin 500 mg capsule 500 mg PO BID 10 Days Qty: 20 0RF ibuprofen 600 mg tablet 600 mg PO BID PRN (Reason: pain) 30 Days Qty: 60 0RF <BELKYS Gomez - Last Filed: 10/31/22 14:54> Referrals: [facility] Orth[facility] Surgeons [Provider Group] <BELKYS Gomez - Last Filed: 10/31/22 14:54> Stand Alone Forms: Work/School Release <BELKYS Gomez - Last Filed: 10/31/22 14:54> Print Language: Cook Islander <BELKYS Gomez - Last Filed: 10/31/22 14:54>
[2022-10-31 15:41] VITALS: RESP 18
[2022-10-31] MEDS: HYDROmorphone HCl 0.5 MG/0.5 ML SYRINGE IVPUSH (15:41)
[2022-10-31] MEDS: Lidocaine HCl 1 % 20 ML VIAL 30 ML INFILTRATI (16:05)
[2022-10-31 16:34] VITALS: BP 125/79; PULSE 58; RESP 18; TEMP 36.7; O2SAT 98
[2022-10-31] MEDS: cefTRIAXone sodium 1 GM in 0.9 % Sodium Chloride 50 ML IV (17:19)
== END 2022-10-31 18:44 | disposition home or self-care (01) ==
PROVIDERS: Emergency Provider Emergency Medicine Emergency Medical Services; PCP Internal Medicine Geriatric Medicine
DX: S61.411A Laceration without foreign body of right hand, initial encounter (principal); W24.1XXA Contact with transmission devices, not elsewhere classified, initial encounter; Y93.89 Activity, other specified; Y92.9 Unspecified place or not applicable; Y99.9 Unspecified external cause status
CPT/HCPCS: 12002; 73120; 96365; 96375; 99284; J0696; J1170

== ENCOUNTER → 2022-11-03 12:09 | Outpatient (BNVA) | payer MEDICAID, SELFPAY | PROVIDERS: PCP Internal Medicine Geriatric Medicine; Visit Provider Orthopaedic Surgery | DX: S61.210A Laceration without foreign body of right index finger without damage to nail, initial encounter (principal) | CPT/HCPCS: 99202 ==

== ENCOUNTER 2022-11-10 10:29 | Outpatient (REF) | payer MEDICAID, SELFPAY ==
--- NOTE | ~2022-11-10 | XR_ITS ---
EXAMINATION: XR HAND, RIGHT CLINICAL INFORMATION: Right hand pain. COMPARISON: None TECHNIQUE: PA, lateral, and oblique views of the right hand. FINDINGS: Suspect mild soft tissue swelling involving the right second digit. The bones appear unremarkable. No fracture appreciated. Alignment is anatomic. Joint spaces are maintained. No erosions or soft tissue calcifications. XR/XR hand RT min 3V IMPRESSION: Suspect mild soft tissue swelling involving the right second digit. Otherwise unremarkable plain film examination of the right hand.
== END 2022-11-10 10:30 | disposition home or self-care (01) ==
LOC: HO.HOSX 10:29
PROVIDERS: Visit Provider Orthopaedic Surgery
DX: S61.210A Laceration without foreign body of right index finger without damage to nail, initial encounter (principal)
CPT/HCPCS: 73130; 99212

== ENCOUNTER 2022-11-12 10:01 | Day surgery (SDC) | payer MEDICAID, SELFPAY ==
--- NOTE | 2022-11-11 09:48 | P.CONAN_ITS ---
Documented by User: Gillian Wayne NP 11/11/22 09:48 HPI - Anesthesia Eval Consult details Narrative: 32yo M for Right Index finger Debridement Soft Tissue and irrigation PMFSH Active Problems Active Problems: All Active Problems (Updated 11/03/22 @ 14:30 by Sandra Lilly MD) Laceration of right index finger (Acute) S/P ACL reconstruction (Acute) Tibial plateau fracture, right (Acute) Right ACL tear (Acute) Past Medical History Medical History Low back pain Family History Family history of problems with anesthesia: No Surgical History Surgical History No history of previous surgery History of Problems with Anesthesia: No Social History Social History Alcohol intake: never Patient Tobacco Use Status: Never used Tobacco Use of substances other than those prescribed or required for medical reasons: No Are you DNR?: No Advance Directives: No Advance Directives Information Provided: Yes Current occupational status: unemployed Current occupation: rt handed Meds Allergies Allergy/AdvReac Type Severity Reaction Status Date / Time No Known Allergies Allergy Verified 11/10/22 10:40 [No Known Allergies*] Exam Exam Date and Time: November 11, [id number] Assessment and Plan Assessment Anesthesia Assessment: Chart Reviewed Final Anesthetic Review Family History of Problems with Anesthesia: No History of Problems with Anesthesia: No Documented by User: Demetrice Liu MD 11/12/22 12:26 PMFSH Past Medical History Medical History Low back pain Surgical History Surgical History No history of previous surgery Social History Social History (Reviewed 11/10/22 @ 10:40 by Arya Ren Alcohol intake: never Patient Tobacco Use Status: Never used Tobacco Use of substances other than those prescribed or required for medical reasons: No Are you DNR?: No Advance Directives: No Advance Directives Information Provided: Yes Current occupational status: unemployed Current occupation: rt handed Meds Allergies Allergy/AdvReac Type Severity Reaction Status Date / Time No Known Allergies Allergy Verified 11/10/22 10:40 [No Known Allergies*] Exam Airway Mallampati Class: II TM Dist: >3cm Neck ROM: Full Heart: rrr Lungs: cta Assessment and Plan Assessment Anesthesia Assessment: Anesthesia Plan Discussed Final Anesthetic Review NPO: Yes ASA Class: II Final Preanesthetic Review: No Changes in Pt Med Stat, Meds/Allgs Chart Re viewed, Consent Obtained/Reviewed and Anes Risks/Benef Reviewed Patient Risk: Low Procedure Risk: Low Anesthetic Plan Anesthetic Plan: GA and Agree w/ Assess. and Plan Disposition: Standard PACU
[2022-11-12] VITALS (15 sets, daily range): BP systolic 111–135; BP diastolic 66–84; PULSE 57–80; RESP 12–19; TEMP 36.6–36.8; O2SAT 96–100; BMI 26.6
[2022-11-12] MEDS: Lactated Ringers 1,000 ML 100 ML IVCONT (10:47)
--- NOTE | 2022-11-12 12:00 | P.OP_ITS ---
Operative Note Operative Note Date of Service: 11/12/22 Narrative: Operative Note Narrative: Preop diagnosis: 1. Right index finger laceration 2. Right index finger infection Postop diagnosis: Same Procedure: 1. Right index finger I&D, deep, flexor tendon sheath Surgeon: Sandra Lilly MD Anesthesia: General Anesthesia Findings: a significant amount of black dirt and grease found in the volar aspect of the right finger wound. Also, there was evidence of an ulnar digital nerve laceration with at least a 1 cm gap and a dirty wound bed. No gross purulence that I can see. Flexor tendons appear to be intact Implants: None Tourniquet time: 39 minutes EBL: 5.0 ml Specimen: Cultures from index finger wound Drains: None Complications: None Disposition: Brought to the recovery room in stable condition Plan: Follow-up in 1 week for wound check, and 2 check cultures Indications: The patient is a 32 year old man with with a substantial somewhat circumferential laceration involving the right index finger when a cut caught in a car engine belt. The wound began to drain some purulent drainage few days ago. . The risks and benefits of operative treatment, including but not limited to risk of damage to blood vessels, nerves, tendons, infection, recurrence, persistent pain or numbness, incomplete resolution of preoperative symptoms, or need for further surgery were discussed with the patient and they wished to proceed with surgery. Procedure: Once consent was obtained patient was brought back to the operating suite and placed in the operating table in a supine position. Anesthesia was administered by the anesthesia team. A tourniquet was applied to the proximal aspect of the right upper extremity and the limb was prepped and draped in a standard surgical fashion. The limb was elevated exsanguinated with Esmarch ba ndage and the tourniquet inflated to 250 mm of mercury for a total tourniquet time of 39 minutes. Sutures were removed from a significant portion of the right index finger laceration including the entire volar part of the laceration and around the ulnar aspect of the PIP joint. We left some of the dorsal sutures in place. The skin just distal to the laceration along the volar edge of the laceration appears to have a partial-thickness injury to a distance of 5-10 mm distal to the laceration. This was likely rather friable tissue when it was 1st seen, and the more proximal skin edge was sutured slightly distal to this. When the sutures removed and we were able to open the wound we noted that there was a considerable amount of dirt or grease imbedded in the soft tissues. No gross purulence was seen though there was some watery exudate. We did take cultures of this fluid before antibiotics were given in the OR. We then dissected down to the level of the flexor tendon sheath.? There is a rent in the flexor tendon sheath and the flexor tendons were visible. They appear to be in good condition. The a2 in A4 pulleys appear to be intact.. IV antibiotics were administered after we obtained our cultures. The ulnar neurovascular bundle appears to have been disrupted. There is an approximately 1 cm gap in the ulnar digital nerve again, with a dirty appearing wound bed. A direct repair is not possible, and given the nature of the wound bed I would not recommend using a conduit. I debrided the skin edges sharply using iris scissors and a 15. Blade. I then carefully tried to remove some of the grease and dirt from the wound and soft tissues using pickups and also using a small rongeur. The wound was then copiously irrigated with normal saline. At this point the tourniquet was deflated and hemostasis obtained with a brief period of local pressure and bipolar electrocautery. The wound was copiously irrigated with normal saline. The skin edges were reapproximated with 5-0 nylon suture. A digital block was performed using some 0.5% plain ropivacaine for postop pain control and a sterile dressing was applied. I also performed a gentle manipulation bringing the index finger to a fully closed fist and back into full extension several times, as he was already developing some stiffness at the MCP and PIP joints. The patient appears to have tolerated the procedure well and with no complications. All digits were well vascularized conclusion of the case.
--- NOTE | 2022-11-12 12:00 | MHC.SHP ---
Pre-Procedural Eval Section A Date of Service: 11/12/22 The patient is an INPATIENT: No Changes since office visit: No Cold of Flu in the past 2 weeks, No New Medical Problems, No Changes in Medication and No Patient answered all questions The History & Physical has been completed within 30 days and I have reviewed it.: Yes Section B Chief Complaint: Laceration without foreign body of right index fin Allergies: Allergies Allergy/AdvReac Type Severity Reaction Status Date / Time No Known Allergies Allergy Verified 11/10/22 10:40 [No Known Allergies*] Plan I have reviewed the history and physical and performed a pertinent physical examination on my patient. No changes have occurred unless specified. Time Spent With Patient Time: Total time managing care of this patient today ____ minutes.
[2022-11-12] MEDS: oxyCODONE HCl Immed Release 5 MG TABLET PO (13:52)
[2022-11-12] MEDS: fentaNYL citrate/PF 100 MCG/2 ML VIAL 25 MCG IVPUSH ×2 (13:53→14:02)
== END 2022-11-12 15:35 | disposition home or self-care (01) ==
PROVIDERS: PCP Internal Medicine Geriatric Medicine; Visit Provider Orthopaedic Surgery
PROC: (CPT 20520; principal; 2022-11-12 11:50)
DX: S61.401A Unspecified open wound of right hand, initial encounter (principal); S64.490A Injury of digital nerve of right index finger, initial encounter; S61.220A Laceration with foreign body of right index finger without damage to nail, initial encounter; L08.89 Other specified local infections of the skin and subcutaneous tissue; B95.7 Other staphylococcus as the cause of diseases classified elsewhere; R20.2 Paresthesia of skin; W31.89XA Contact with other specified machinery, initial encounter; Y93.89 Activity, other specified; Y92.9 Unspecified place or not applicable; Y99.8 Other external cause status
CPT/HCPCS: 20520; 87070; 87077; 87186; 87205; J0690; J1100; J1885; J2405; J2795; J3010

== ENCOUNTER → 2022-11-17 11:03 | Outpatient (BNVA) | payer MEDICAID, SELFPAY | PROVIDERS: PCP Internal Medicine Geriatric Medicine; Visit Provider Physician Assistant | DX: Z13.89 Encounter for screening for other disorder (principal) ==

== ENCOUNTER → 2022-11-24 11:04 | Outpatient (BNVA) | payer MEDICAID, SELFPAY | PROVIDERS: PCP Internal Medicine Geriatric Medicine; Visit Provider Physician Assistant | DX: Z13.89 Encounter for screening for other disorder (principal) ==

== ENCOUNTER → 2022-12-01 10:36 | Outpatient (BNVA) | payer MEDICAID, SELFPAY | PROVIDERS: PCP Internal Medicine Geriatric Medicine; Visit Provider Physician Assistant | DX: Z13.89 Encounter for screening for other disorder (principal) ==

== ENCOUNTER → 2022-12-08 12:29 | Outpatient (BNVA) | payer MEDICAID, SELFPAY | PROVIDERS: PCP Internal Medicine Geriatric Medicine; Visit Provider Physician Assistant | DX: S61.210D Laceration without foreign body of right index finger without damage to nail, subsequent encounter (principal) | CPT/HCPCS: 99212 ==

== ENCOUNTER → 2022-12-24 14:12 | Outpatient (BNVA) | payer MEDICAID, SELFPAY | PROVIDERS: PCP Internal Medicine Geriatric Medicine; Visit Provider Physician Assistant | DX: Z13.89 Encounter for screening for other disorder (principal) ==

== ENCOUNTER 2023-01-13 08:00 | Outpatient (RCR) | payer MEDICAID, SELFPAY ==
--- NOTE | 2022-12-08 10:46 | MHC.OT.EP ---
[address] [phone] Occupational Therapy Plan of Care Date of Evaluation: 12/08/22 Diagnosis: Laceration of right index finger Pain Location: 0-6 right index Pain Score: 6 Pain Scale Used: Numeric (0 - 10) Aggravating Factors: Bumping finger, bending finger, pressure on finger Alleviating Factors: Avoiding the finger Assessment: Pt is a 32 yo male 5 wks s/p right index finger laceration due to digit caught on a car motor belt Today pt presents with healing scar, PIP joint and DIP joint stiffness and impaired sensation at medial aspect for right dominant index finger. Pt has a history of keloid scarring now presents with healing index finger scarring as well as two dorsal hand scars. 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 Thank you once again for your referral.
--- NOTE | 2023-01-13 08:43 | MHC.OT.DC ---
[address] [phone] F: [phone] Occupational Therapy Discharge Note Patient Name: Jesús Bolanos Provider: Aliyah Henning Diagnosis: Laceration of right index finger Date of Surgery: 11/01/22 Date of Evaluation: 12/08/22 Date of Discharge: Treatments to Date: 6 Cancellations to Date: No Shows to Date: Discharge Status: Achieved Goals Improved Function Independent with HEP Discharge Summary: Goals met for right index ROM , hand strength and function. PIP ex to neutral after heat and stretch. Pt is independent with his HEP and reports no difficulty with daily activities. He will RTW 01/22/23 . Electronically Signed By: Mae Meier OT CHT CLT Reviewed/agree with student documentation: Therapist: Please Sign and return to therapist, thank you for your referral.
== END 2023-01-13 08:44 | disposition home or self-care (01) ==
LOC: HO.OT 08:00
PROVIDERS: PCP Internal Medicine Geriatric Medicine; Visit Provider Physician Assistant
DX: S61.210D Laceration without foreign body of right index finger without damage to nail, subsequent encounter (principal)
CPT/HCPCS: 97035; 97110; 97140; 97166

== ENCOUNTER 2023-08-30 08:24 | Outpatient (REF) | payer MEDICAID, SELFPAY ==
[2023-08-30 11:31] LABS: MANUAL DIFF FLAG NO
[2023-08-30 11:38] LABS: Basophils Absolute Auto 0.1 X10*3/uL (0.0-0.2); Eosinophils Absolute Auto 0.2 X10*3/uL (0.0-0.4); Eosinophils Percent Auto 3.5 % (0-4); Hemoglobin 14.5 g/dl (14.0-18.0); Imm Gran Abs Auto 0.04 X10*3/uL (0.00-0.03); Imm Gran Pct Auto 0.6 % (0.0-0.4); Lymphocytes Absolute Auto 1.7 X10*3/uL (1.2-4.9); Lymphocytes Percent Auto 27.1 % (20-40); Mean Corpuscular HGB Conc 32.2 g/dl (31.0-36.0); Mean Corpuscular Hemoglobin 29.9 pg (27.0-33.0); Mean Corpuscular Volume 92.8 fL (80.0-98.0); Mean Platelet Volume 10.6 fL (9.4-12.4); Monocytes Absolute Auto 0.6 X10*3/uL (0.1-1.2); Neutrophils Absolute Auto 3.6 x10*3/uL (2.0-8.3); Neutrophils Percent Auto 57.8 % (45-73); Platelet Count 335 X10*3/uL (160-400); Red Blood Count 4.85 X10*6/uL (4.60-5.80); Red Cell Distribution Width 13.2 % (11.0-16.0); White Blood Count 6.2 X10*3/uL (4.8-10.8)
[2023-08-30 12:09] LABS: Alanine Aminotransferase 33 U/L (0-40); Alkaline Phosphatase 63 U/L (39-117); Anion Gap 10 (12-20); Aspartate Amino Transferase 25 U/L (5-37); Bilirubin Total 0.6 mg/dL (0.0-1.0); Blood Urea Nitrogen 11 mg/dL (9-16); Calcium 9.1 mg/dL (8.4-10.2); Carbon Dioxide 30 mmol/L (22-29); Chloride 106 mmol/L (96-108); Cholesterol 196 mg/dL (<200); Estimated Glomerular Filt Rate > 60; Glucose Random 102 mg/dL (60-115); HDL Cholesterol 55 mg/dL (>40); LDL Cholesterol Calculated 122 mg/dL (<100); Potassium 4.1 mmol/L (3.3-5.1); Sodium 142 mmol/L (135-145); Total Protein 6.7 g/dL (6.5-8.0); Triglycerides 96 mg/dL (<150)
== END 2023-08-30 08:25 | disposition home or self-care (01) ==
LOC: HO.HHCL 08:24
PROVIDERS: Visit Provider Internal Medicine Geriatric Medicine
DX: Z13.220 Encounter for screening for lipoid disorders (principal); Z13.1 Encounter for screening for diabetes mellitus
CPT/HCPCS: 36415; 80053; 80061; 85025